=== PATIENT | male | born 2000 | race Caucasian/White ===

== ENCOUNTER 2021-05-03 00:42 | Emergency (ER) | payer SELFPAY ==
--- NOTE | 2021-05-03 02:55 | EDPHYS ---
Physician Documentation [facility] Name: Yao Miller Age: 20 yrs Sex: Male : 2000 Arrival Date: 05/03/2021 Time: 00:50 Bed 7 Private MD: ED Physician Sherly Rae HPI: 05/03 02:53 This 20 yrs old Male presents to ER via EMS with complaints of Chronic pain. ma2 02:53 Onset: The symptoms/episode began/occurred gradually, 6 year(s) ago. Severity of ma2 symptoms: At their worst the symptoms were very mild in the emergency department the symptoms are unchanged. Patient has a chronic pain, schizophrenia, he is homeless and he would like to eat, he told me he has no symptom and does not want any testing to be done.. Historical: - Allergies: 01:07 PENICILLINS; bb - Home Meds: 01:07 Unable to obtain [Active]; bb - PMHx: 01:07 Schizophrenia; Disabled; bb - PSHx: 01:07 PEG tube; bb - Immunization history:: Adult Immunizations unknown. - Social history:: Smoking status: Patient reports the use of cigarette tobacco products, smokes one pack cigarettes per day. Patient uses alcohol, patient/guardian reports recent binge of alcohol consumption. street drugs, marijuana. - Family history:: not pertinent. ROS: 02:53 Constitutional: Negative for fever, chills, and weight loss. ma2 02:53 All other systems are negative. Exam: 02:53 Constitutional: This is a well developed, well nourished patient who is awake, alert, ma2 and in no acute distress. Chest/axilla: Normal chest wall appearance and motion. Nontender with no deformity. No lesions are appreciated. Cardiovascular: Regular rate and rhythm with a normal S1 and S2. No gallops, murmurs, or rubs. Normal PMI, no JVD. No pulse deficits. Respiratory: Lungs have equal breath sounds bilaterally, clear to auscultation and percussion. No rales, rhonchi or wheezes noted. No increased work of breathing, no retractions or nasal flaring. MS/ Extremity: Pulses equal, no cyanosis. Neurovascular intact. Full, normal range of motion. Neuro: Awake and alert, GCS 15, oriented to person, place, time, and situation. Cranial nerves II-XII grossly intact. Motor strength 5/5 in all extremities. Sensory grossly intact. Cerebellar exam normal. Normal gait. Vital Signs: 01:05 BP 122 / 66; Pulse 74; Resp 16 S; Temp 97.6(O); Pulse Ox 98% on R/A; Weight 111.13 kg bb (R); Height 6 ft. 0 in. (182.88 cm) (R); Pain 5/10; 01:05 Body Mass Index 33.23 (111.13 kg, 182.88 cm) bb MDM: 02:21 Patient medically screened. ma2 02:53 Differential Diagnosis Schizophrenia, dehydration, chronic pain,. Data reviewed: vital ma2 signs, nurses notes. Counseling: I had a detailed discussion with the patient and/or guardian regarding: the historical points, exam findings, and any diagnostic results supporting the discharge/admit diagnosis, the presence of at least one elevated blood pressure reading (>120/80) during this emergency department visit, the need for outpatient follow up. Administered Medications: No medications were administered Disposition Summary: 05/03/21 02:55 Discharge Ordered Location: Home ma2 Condition: Stable ma2 Diagnosis - Chronic pain syndrome ma2 Followup: ma2 - With: Private Physician - When: Today - Reason: Continuance of care Discharge Instructions: - Discharge Summary Sheet ma2 - Chronic Pain, Adult ma2 Forms: - Medication Reconciliation Form ma2 - Thank You Letter ma2 - Antibiotic Education ma2 - Prescription Opioid Use ma2 Signatures: Daily Padgett RN RN bb Alzahri, Mohammad, MD MD ma2
--- NOTE | 2021-05-03 02:55 | ER ---
Nurse's Notes [facility] Name: Yao Miller Age: 20 yrs Sex: Male : 2000 Arrival Date: 05/03/2021 Time: 00:50 Bed 7 Private MD: Diagnosis: Chronic pain syndrome Presentation: 05/03 01:05 Chief complaint: Patient states: he is here for chronic pain. Coronavirus screen: At bb this time, the client does not indicate any symptoms associated with coronavirus-19. Ebola Screen: No symptoms or risks identified at this time. Initial Sepsis Screen: Does the patient meet any 2 criteria? No. Patient's initial sepsis screen is negative. Does the patient have a suspected source of infection? No. Patient's initial sepsis screen is negative. Risk Assessment: Do you want to hurt yourself or someone else? Patient reports no desire to harm self or others. Note pt states he has been smoking marijuana for a week, smokes a pack a day of cigarettes, and drank alcohol today also. Onset of symptoms is unknown. 01:05 Method Of Arrival: EMS: [facility] 01:05 Acuity: MICK 5 bb Triage Assessment: 01:07 General: Appears in no apparent distress. Behavior is calm, cooperative. Pain: bb Complains of pain in all over. Neuro: Level of Consciousness is awake, alert, obeys commands, Oriented to person, place, situation. Cardiovascular: Capillary refill < 3 seconds Patient's skin is warm and dry. Respiratory: Respiratory effort is even, unlabored, Respiratory pattern is regular. GI: No signs and/or symptoms were reported involving the gastrointestinal system. Derm: Skin is pink, warm \T\ dry. Musculoskeletal: Circulation, motion, and sensation intact. Historical: - Allergies: 01:07 PENICILLINS; bb - Home Meds: :07 Unable to obtain [Active]; bb - PMHx: 01:07 Schizophrenia; Disabled; bb - PSHx: : PEG tube; bb - Immunization history:: Adult Immunizations unknown. - Social history:: Smoking status: Patient reports the use of cigarette tobacco products, smokes one pack cigarettes per day. Patient uses alcohol, patient/guardian reports recent binge of alcohol consumption. street drugs, marijuana. - Family history:: not pertinent. Screenin:30 Abuse screen: Denies threats or abuse. Nutritional screening: No deficits noted. jb4 Tuberculosis screening: No symptoms or risk factors identified. Fall Risk None identified. Assessment: 02:30 General: Appears in no apparent distress. comfortable, Behavior is calm, cooperative, jb4 appropriate for age. Pain: Denies pain. Neuro: Level of Consciousness is awake, alert, obeys commands, Oriented to person, place, time, situation. Cardiovascular: Patient's skin is warm and dry. Respiratory: Airway is patent Respiratory effort is even, unlabored, Respiratory pattern is regular, symmetrical. GI: No signs and/or symptoms were reported involving the gastrointestinal system. : No signs and/or symptoms were reported regarding the genitourinary system. EENT: No signs and/or symptoms were reported regarding the EENT system. Derm: Skin is intact, Skin is pink, warm \T\ dry. Musculoskeletal: Circulation, motion, and sensation intact. Range of motion: intact in all extremities. Vital Signs: 01:05 BP 122 / 66; Pulse 74; Resp 16 S; Temp 97.6(O); Pulse Ox 98% on R/A; Weight 111.13 kg bb (R); Height 6 ft. 0 in. (182.88 cm) (R); Pain 5/10; 01:05 Body Mass Index 33.23 (111.13 kg, 182.88 cm) ED Course: 00:50 Patient arrived in ED. bb 01:07 Triage completed. bb 01:07 Arm band placed on Patient placed in waiting room, Patient notified of wait time. bb 02:21 Sherly Rae MD is Attending Physician. ma2 02:30 Patient has correct armband on for positive identification. Bed in low position. Call jb4 light in reach. Side rails up X 1. 03:13 Yfn Santos, RN is Primary Nurse. jb4 03:16 No provider procedures requiring assistance completed. Patient did not have IV access jb4 during this emergency room visit. Administered Medications: No medications were administered Outcome: 02:55 Discharge ordered by . ma2 03:16 Discharged to home ambulatory. jb4 03:16 Condition: stable 03:16 Discharge instructions given to patient, Instructed on discharge instructions, follow up and referral plans. Demonstrated understanding of instructions, follow-up care. 03:16 Patient left the ED. jb4 Signatures: Daily Padgett RN RN bb Yfn Santos RN RN jb4 Sherly Rae MD MD ma2
[2021-05-03 05:49] VITALS: BP 122/66; TEMP 97.6; O2SAT 98
== END 2021-05-03 03:16 | disposition home or self-care (01) ==
LOC: ER 00:42
DX: G89.4 Chronic pain syndrome (principal); F20.9 Schizophrenia, unspecified; Z59.0 Homelessness; F17.210 Nicotine dependence, cigarettes, uncomplicated
CPT/HCPCS: 99283